=== PATIENT | female | born 1960 | race Caucasian/White ===

== ENCOUNTER 2016-07-21 15:06 | Outpatient (CLI) | payer OTHER ==
[2016-07-22 20:26] LABS: TEST RESULT REPORT (())
== END 2016-07-21 15:07 | disposition home or self-care (01) ==
LOC: LAB.R 15:06
PROVIDERS: ATTEND Obstetrics & Gynecology
DX: N89.8 Other specified noninflammatory disorders of vagina (principal)
CPT/HCPCS: 81599; 87480; 87510; 87660